=== PATIENT | male | born 1960 | race Caucasian/White ===

== ENCOUNTER 2016-10-24 09:50 | Day surgery (SDC) | payer OTHER ==
[~2016-10-24] VITALS: Ht 172.7 cm; Wt 106.5 kg
[~2016-10-24 09:50] MED LIST: 0.9% Sodium Chloride 1,000 ML IV PRN; CLOB15OI2 TP; DILT240C87 PO; HYDR-4003 PO; HYDR25TA4 PO; LOSA1TAB35 PO; LOVA40TA PO; MULT-666 PO; NEX40C PO; OMEG-81 PO; Sodium Chloride LOK Flush 10 mL Syringe IV PRN; ZES20 PO; fentaNYL-PF 50 mCg/mL 2 mL Inj IVPUSH PRN
[2016-10-24 10:40] VITALS: BP 123/81; PULSE 72; RESP 14; O2SAT 95
--- NOTE | 2016-10-24 12:19 | PCM.ENDCOL ---
Colonoscopy Date of Service: October 24, 2016 Physician Flaco Rao MD Pre Procedure Diagnosis: Screening Post Procedure Dx & Findings: Polyp hemorrhoids diverticula Procedure Colonoscopy PROCEDURE IN DETAIL: Prep adequate Withdrawal time 20 minutes After unremarkable rectal examination the Olympus video colonoscope was inserted patient's anal canal and was advanced to cecum. Landmarks were identified including the ileocecal valve and appendiceal orifice. Scope was withdrawn systematically. Visualized colonic mucosa showed healthy shiny mucosa with normal healthy-appearing vasculature. In the ascending colon there was a 2 mm polyp which was removed completely using cold snare. In the transverse colon there were 3 polyps. These are about 3-5 mm in size. These were all resected completely using cold snare. There were placed on the bottle labeled right colon. In the descending colon, there were 2 polyps. Both were about 2-3 mm in size which were resected completely using cold snare. In the sigmoid colon, there were total of 3 polyps. 2 were about 2 mm in size and these were resected completely using cold snare. One was about a millimeter in size which was resected completely using cold forceps. In the sigmoid colon and the right colon, there are several diverticuli which were small. In the rectum retroflexion was done which showed hemorrhoids. Anal canal was inspected carefully on the way out and hemorrhoids noted. Impression Polyp 9 status post complete removal Diverticuli Hemorrhoids Recommendation Repeat colonoscopy 3 years Diverticular diet Presedation Assessment Risks and Benefits Informed consent was obtained from the patient after all risks and benefits including but not limited to drug reaction, infection, pain, bleeding, perforation, as well as alternatives were discussed. Patient monitoring Continuous pulse oximetry, cardiac monitoring, blood pressure monitoring, IV access, and oxygen at 2L per nasal cannula. Periprocedural Fentanyl: Fentanyl 100mcg Incrementally Midazolam: Midazolam 7mg Incrementally Complications There were no periprocedural complications identified. Post Procedure Plan Post Procedure Recommendations 1. Restrict activities today. 2. Resume normal activities in the morning. 3. Resume medications. 4. Patient informed of normal post procedure side effects as bloating, drowsiness, blood streaking in the stool. 5. average risk CRCS. If colon polyps come back as: -Hyperplastic- can repeat colonoscopy in 10 years -Tubular adenoma- repeat colonoscopy in 5 years -Tubulovillous/villous adenoma- repeat colonoscopy in 3 years -If any dysplasia- return to clinic as soon as possible 6. Please don't hesitate to call me with any questions. Flaco Rao MD October 24, 2016 12:19
[2016-10-24 12:24] VITALS: BP 115/69; PULSE 72; RESP 16; O2SAT 95
[2016-10-24 12:34] VITALS: BP 118/76; PULSE 71; RESP 16; O2SAT 93
[2016-10-24 12:47] VITALS: BP 118/76; PULSE 64; RESP 16; O2SAT 97
--- NOTE | 2016-10-25 11:24 | PATH ---
SURGICAL PATHOLOGY Attending Physician:Flaco Rao M.D. CASE STATUS: Signed Out PATIENT NAME: RADHA FLOWERS PID: [id number] : 1960 DATE COLLECTED:10/24/2016 20:53 SPECIMEN: 1: Colon, Biopsy 2: Colon, Biopsy CLINICAL HISTORY: 1). RIGHT COLON POLYPS 2). LEFT COLON POLYPS FINAL DIAGNOSIS: 1.RIGHT COLON POLYPS: TUBULAR ADENOMA INVOLVING ALL BIOPSY FRAGMENTS. 2.LEFT COLON POLYPS: TUBULAR ADENOMA INVOLVING ALL BIOPSY FRAGMENTS. ICD10 CODE D12.2 GROSS DESCRIPTION: The specimen is received in two formalin filled containers labeled with the patient's name. 1). The specimen is sublabeled "R. colon polyps" and consists of 6 portions of tissue which aggregate to 0.4 x 0.4 x 0.3 CM. The specimen is entirely submitted in cassette 1A. 2). The specimen is sublabeled "L. colon polyps" and consists of multiple portions of tissue which aggregate to 0.7 x 0.6 x 0.4 CM. The specimen is entirely submitted in cassette 2A. 10/24/2016 [facility] MICRO DESCRIPTION: See diagnosis. ICD-9 CODES: CPT CODES: 1: 73325 2: 33146 Electronically Signed Out Aly Menchaca MD [facility] [address], [place] [address] Technical component performed at [facility], [facility] [address], [address]
== END 2016-10-24 23:59 | disposition home or self-care (01) ==
LOC: END 09:50
PROVIDERS: ATTEND Internal Medicine
DX: Z12.11 Encounter for screening for malignant neoplasm of colon (principal); D12.2 Benign neoplasm of ascending colon; D12.4 Benign neoplasm of descending colon; K57.30 Diverticulosis of large intestine without perforation or abscess without bleeding; K64.8 Other hemorrhoids; Z80.0 Family history of malignant neoplasm of digestive organs; I10 Essential (primary) hypertension; E78.5 Hyperlipidemia, unspecified; K21.9 Gastro-esophageal reflux disease without esophagitis; M54.41 Lumbago with sciatica, right side; Z87.891 Personal history of nicotine dependence
CPT/HCPCS: 45385; 99153; G0500; J2250; J3010; J7030